=== PATIENT | male | born 1965 | race Caucasian/White ===

== ENCOUNTER 2017-12-20 10:20 | Inpatient (IN) | payer BC ==
[~2017-12-20] VITALS: Ht 188 cm; Wt 103.4 kg
[2017-12-20] VITALS (7 sets, daily range): BP systolic 105–144; BP diastolic 63–87
--- NOTE | 2017-12-20 10:25 | NUR ---
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 NO PAIN AT THIS TIME. PT IS A/OX4. NAD VSS RR EVEN AND UNLABORED. ASSISTED TO ED BED 12. GOWNED AND PLACED ON CONT CARDIAC AND POX MONITORING. WILL CONT TO MONITOR
[2017-12-20 10:44] LABS: BASOPHILS # (AUTO) 0.1 /CMM (0.0-0.2); BASOPHILS % (AUTO) 0.7 % (0.0-2.0); HEMATOCRIT 51 % (39-51); HEMOGLOBIN 17.2 g/dL (13.5-17.5); LYMPHOCYTES # (AUTO) 1.8 /CMM (0.8-4.8); LYMPHOCYTES % (AUTO) 21.2 % (20.0-44.0); MEAN CORPUSCULAR HGB CONC 34 g/dl (31.0-36.0); MEAN CORPUSCULAR VOLUME 89 fL (80-96); MONOCYTES # (AUTO) 0.4 /CMM (0.1-1.30); MONOCYTES % (AUTO) 5.3 % (2.0-12.0); NEUTROPHILS % (AUTO) 71.8 % (43.0-81.0); PLATELET COUNT (AUTO) 205 /CMM (150-450); RDW COEFFICIENT OF VARIATION 13.5 (11.5-15.0); WHITE BLOOD COUNT (AUTO) 8.4 K/uL (4.3-11.0)
[2017-12-20 10:54] LABS: CALCIUM, SERUM 9.8 mg/dL (8.5-10.1); CREATININE 1.2 mg/dL (0.6-1.3)
[2017-12-20 10:58] LABS: INR 1.03 (0.85-1.15)
[2017-12-20 11:00] LABS: ALBUMIN 3.8 g/dL (3.4-5.0); BILIRUBIN,DIRECT 0.1 mg/dL (0.0-0.2); BILIRUBIN,TOTAL 0.5 mg/dL (0.2-1.0); TOTAL PROTEIN, SERUM 8.1 g/dL (6.4-8.2)
[2017-12-20 11:03] LABS: TROPONIN I 5.83 ng/mL (0.00-0.056)
[2017-12-20] MEDS ORDERED: CT SWABBABLE VALVE TRANS SET 1 EA INFUS.SET MC ONE (11:06)
[2017-12-20] MEDS ORDERED: IOHEXOL-350 100 ML VIAL IV ONE (11:06)
--- NOTE | 2017-12-20 11:11 | NUR ---
CALLED DR FRANK LEFT VOICEMAIL TO CALL BACK,
--- NOTE | 2017-12-20 11:40 | NUR ---
PAGED TEAM LEAD INSURANCE CLAIMS EXAMINER, .
--- NOTE | 2017-12-20 11:49 | NUR ---
EPIC PAGED, AVIONICS INTEGRATION ENGINEER
--- NOTE | 2017-12-20 12:01 | NUR ---
CALLED NURSING SUP. FOR ICU BED
--- NOTE | 2017-12-20 13:05 | NUR ---
ICU 255
--- NOTE | 2017-12-20 13:16 | NUR ---
gave report to bed icu 255 nstemi for angiogram and PCI dr pollard admitting. transfer via acls protocol
[2017-12-20] MEDS ORDERED: OMEP40CA37 PO (13:50)
[2017-12-20] MEDS ORDERED: METF-440 PO (13:50)
[2017-12-20] MEDS ORDERED: COLC0.6C3 PO (13:50)
[2017-12-20] MEDS ORDERED: RIVA10TA PO (13:50)
[2017-12-20] MEDS ORDERED: ALLO300T2 PO (13:50)
[2017-12-20] MEDS ORDERED: LISI40TA4 PO (13:50)
--- NOTE | 2017-12-20 14:01 | NUR ---
MANAGER USER INTERFACE RECEIVED PATIENT FROM THE ER ON A GURNEY. PATENT IS ALERT AND AWAKE. NO ACUTE DISTRESS. ON 2L OXYGEN. SINUS RHYTHM ON MONITOR. IVS ARE PATENT. STABLE VITAL SINGS. ABLE TO VERBALIZE NEEDS. DENIES CHEST PAIN. DENIES ANY OTHER PAIN. WILL CONTINUE TO MONITOR AND PROVIDE CARE.
[2017-12-20] MEDS ORDERED: ASPIRIN 325 MG TABLET PO ONE (14:30)
--- NOTE | 2017-12-20 14:44 | NUR ---
BREAKER BOSS CALLED MANAGED CARE NURSE AND INFORMED ABOUT CATH TOMORROW AT 1.[address] LLANES. PATIENT AWARE. RN PROVIDE PATIENT'S SISTER'S CONTACT INFORMATION TO GAIN PATIENT'S INSURANCE INFORMATION.
--- NOTE | 2017-12-20 14:49 | NUR ---
SPORTS PHYSIOTHERAPIST PATIENT'S CODE STATUS ORDERS RECEIVED BY DR. RAMOS. ORDER PLACED. WITNESSED BY OTHER RN.
[2017-12-20] MEDS: ISOSORBIDE MONONITRATE (30MG) 30 MG TAB.SR.24H PO SCH (14:56)
[2017-12-20] MEDS: METOPROLOL TARTRATE 25 MG TABLET PO SCH ×2 (14:56→21:00)
[2017-12-20] MEDS ORDERED: ALBUTEROL FS 2.5 MG/3 ML VIAL.NEB NEB PRN (15:30)
[2017-12-20] MEDS ORDERED: MORPHINE SULFATE INJ 2 MG/ML DISP.SYRIN IV PRN (15:30)
[2017-12-20] MEDS ORDERED: HYDROCODONE/APAP 5/325MG 1 EACH TABLET PO PRN (15:30)
[2017-12-20] MEDS ORDERED: ACETAMINOPHEN 325 MG TABLET PO PRN (15:30)
[2017-12-20] MEDS ORDERED: FENTANYL PF 100MCG/2ML AMPUL IV PRN (15:30)
[2017-12-20] MEDS ORDERED: ONDANSETRON HCL/PF 4 MG/2 ML VIAL IVP PRN (15:30)
[2017-12-20] MEDS ORDERED: NORMAL SALINE FLUSH 10 ML SYR IV PRN (15:30)
[2017-12-20] MEDS ORDERED: LORAZEPAM INJ 2 MG/ML VIAL IV PRN ×2 (15:30→17:00)
[2017-12-20] MEDS: NICOTINE PATCH (21MG) 21 MG PATCH.TD24 TD SCH (17:00)
[2017-12-20] MEDS ORDERED: INSULIN REGULAR, HUMAN 100 UNIT/ML 3 ML VIAL SQ PRN (17:00)
[2017-12-20] MEDS ORDERED: DEXTROSE 50%-WATER 50 ML DISP.SYRIN IV PRN (17:00)
[2017-12-20] MEDS: BLOOD SUGAR DIAGNOSTIC 1 EACH STRIP IN SCH ×2 (17:53→23:37)
--- NOTE | 2017-12-20 19:45 | NUR ---
GALLEY STRIPPER INITIAL NOTE PT RECEIVED FROM ICU AND TRANSFERRED SAFELY TO ROOM 107. A/O X4 AND ABLE TO MAKE NEEDS KNOWN. ON ROOM AIR AND SATURATING 97%. BREATHING EVEN, REGULAR AND UNLABORED. IV SITES CLEAN AND FLUSHING WELL. PT AWARE OF NPO STATUS AFTER MIDNIGHT. CALL LIGHT WITHIN REACH. WILL CONTINUE TO MONITOR.
[2017-12-20] MEDS ORDERED: NORMAL SALINE FLUSH 10 ML SYR IV SCH (21:00)
[2017-12-20] MEDS: ATORVASTATIN 40 MG TABLET PO SCH ×2 (21:15→21:28)
[2017-12-21] VITALS: BP 106/65
--- NOTE | 2017-12-21 00:30 | NUR ---
CUSTOMS MANAGER NOTE PT C/O NONRADIATING 3/10 CHEST PAIN. ORDERS TO ORDER STAT EKG WHEN C/O CHEST PAIN. EKG DONE WITH NORMAL SINUS. PT REFUSED PAIN MEDICATION. WILL CONTINUE TO MONITOR.
[2017-12-21 04:00] VITALS: BP 103/66
[2017-12-21] MEDS: BLOOD SUGAR DIAGNOSTIC 1 EACH STRIP IN SCH ×2 (05:39→12:00)
--- NOTE | 2017-12-21 06:45 | NUR ---
TECHNOLOGIES DIVISION CHAIR CLOSING NOTE PT REMAINED STABLE DURING SHIFT. ALL NEEDS ATTENDED TO PROMPTLY. NPO STATUS MAINTAINED. CALL LIGHT WITHIN REACH. WILL ENDORSE TO NEXT SHIFT FOR CONTINUITY OF CARE.
[2017-12-21 07:12] VITALS: BP 103/66
[2017-12-21 08:00] VITALS: BP 114/73
--- NOTE | 2017-12-21 08:00 | NUR ---
MS RN NOTES RECEIVED PATIENT IN BED RESTING NO SOB OR OR ACUTE DISTRESS NOTED. PATIENT DENIES CHEST PAIN. PATIENT AWARE OF THE TRANSFER TO [facility] FOR ANGIO ORDERED BY DR. CARVALHO. PATIENT ALERT ORIENTED X4. BED IN LOW LOCKED POSITION. CALL LIGHT WITHIN REACH. WILL CONTINUE TO MONITOR.
--- NOTE | 2017-12-21 08:30 | NUR ---
SIGNAL OPERATOR TECHNICAL NOTES REPORT GIVEN TO YAMIL CHARGE NURSE AT [facility]. AWAITING FOR ROLLS MILL OPERATOR. EDUCATION PROVIDED TO PATIENT OF DISCHARGE/TRANSFER INSTRUCTIONS. PATIENT WAS SEEEN BY DR. CARVALHO ALSO AND EVALUATED. ORDERED NOTED AND CARRIED OUT. WILL CONTINUE TO MONITOR.
[2017-12-21 08:47] LABS: CALCIUM, SERUM 8.9 mg/dL (8.5-10.1); CREATININE 1.3 mg/dL (0.6-1.3); POTASSIUM 4.2 mmol/L (3.5-5.1)
[2017-12-21 08:49] LABS: BASOPHILS % (AUTO) 0.5 % (0.0-2.0); EOSINOPHILS % (AUTO) 1.7 % (0.0-6.0); HEMATOCRIT 44 % (39-51); HEMOGLOBIN 15.1 g/dL (13.5-17.5); LYMPHOCYTES # (AUTO) 2.9 /CMM (0.8-4.8); LYMPHOCYTES % (AUTO) 38.5 % (20.0-44.0); MEAN CORPUSCULAR HGB CONC 34 g/dl (31.0-36.0); MEAN CORPUSCULAR VOLUME 90 fL (80-96); MONOCYTES # (AUTO) 0.5 /CMM (0.1-1.30); MONOCYTES % (AUTO) 6.7 % (2.0-12.0); NEUTROPHILS # (AUTO) 3.9 /CMM (1.8-8.9); NEUTROPHILS % (AUTO) 52.6 % (43.0-81.0); PLATELET COUNT (AUTO) 183 /CMM (150-450); RDW COEFFICIENT OF VARIATION 14.3 (11.5-15.0); RED BLOOD CELL COUNT(AUTO) 4.94 MIL/uL (4.5-6.0); WHITE BLOOD COUNT (AUTO) 7.5 K/uL (4.3-11.0)
[2017-12-21 09:00] VITALS: BP 114/73
[2017-12-21] MEDS: METOPROLOL TARTRATE 25 MG TABLET PO SCH (09:00)
[2017-12-21] MEDS ORDERED: PANTOPRAZOLE 40 MG VIAL IV SCH (09:00)
[2017-12-21] MEDS: ISOSORBIDE MONONITRATE (30MG) 30 MG TAB.SR.24H PO SCH (09:00)
[2017-12-21] MEDS ORDERED: ASPIRIN 81 MG TAB.CHEW PO SCH (09:00)
[2017-12-21] MEDS: NICOTINE PATCH (21MG) 21 MG PATCH.TD24 TD SCH (09:00)
--- NOTE | 2017-12-21 09:15 | NUR ---
MUNITIONS HANDLER NOTES PATIENT DISCHARGED/TRANSFERED WITH ACLS EMT. PATIENT VERBALIZED THE REASON FOR TRANSFER. ALL BELONGINGS ACCOUNTED FOR , BELONGING LIST SIGNED. PATIENT NPO FOR SCHEDULED ANGIO. MD AWARE OF ALL ABNORMAL LABS. PATIENT DENIES CHEST PAIN. DISCHARGE PROTOCOL FOLLOWED. PATIENT TRANSFERRED WITH EMT TO [facility] WITH EMT.
== END 2017-12-21 15:14 | disposition short-term general hospital (02) | DRG 282 ==
LOC: ER 10:32 → ICU 13:22 → TELE1 19:30
PROVIDERS: ADMIT Internal Medicine; ATTEND Internal Medicine
DX: I21.4 Non-ST elevation (NSTEMI) myocardial infarction (principal); E11.9 Type 2 diabetes mellitus without complications; E78.5 Hyperlipidemia, unspecified; I10 Essential (primary) hypertension; Z86.718 Personal history of other venous thrombosis and embolism; Z79.84 Long term (current) use of oral hypoglycemic drugs; Z79.01 Long term (current) use of anticoagulants; K21.9 Gastro-esophageal reflux disease without esophagitis; Z98.890 Other specified postprocedural states; Z79.899 Other long term (current) drug therapy; F17.200 Nicotine dependence, unspecified, uncomplicated; J45.909 Unspecified asthma, uncomplicated
CPT/HCPCS: 36415; 71045-TC; 80048-TC; 80076-TC; 82962-TC; 84484-TC; 85025-TC; 85730-TC; 93307-TC; A4216; A4606; C9113; J1815; Q9967; Z7610